=== PATIENT | male | born 1995 | race African-American/Black ===

== ENCOUNTER → 2017-09-26 | Outpatient (CLI) | payer OTHER ==
--- NOTE | 2017-09-26 07:27 | DIAGNOSTIC IMAGING REPORT ---
R LOWER EXT JOINT WITHOUT CLINICAL HISTORY: 22 years-old Male presenting with R KNEE PAIN, history of surgery in 2013, pain anterior and medial. TECHNIQUE: Multisequence, multiplanar MR imaging of the right knee was performed without the use of intravenous contrast. IV contrast: None. COMPARISON: None. FINDINGS: Localizer images: Unremarkable. Postsurgical changes of anterior cruciate ligament repair. No bony edema or abnormal signal intensity of the femoral or tibial attachments of the ACL graft. Susceptibility artifact in Hoffa's fat pad sided degrades evaluation, expected minute metallic artifact. Additional fixation anchor in the fibular head likely from fibular collateral ligament and biceps femoris tendon repairs. No bony edema. Articular cartilage thinning in the mid weightbearing portion of both the medial and lateral femoral condyles, which is less than 50% thickness. No significant apposing articular cartilage changes in the tibial plateau. Deep fissuring noted in the median trochlear cartilage which is over 50% thickness. Minimal irregularity of the apposing median prominence of the patellar cartilage. Horizontal tear of the posterior horn body junction of the medial meniscus, which approaches the inferior articular surface. Medial meniscocapsular ligaments intact. Complex tear versus degenerative change suspected at the posterior horn body junction of the lateral meniscus (series 5 image 5). Possible disruption of the meniscofemoral ligament attachment of the lateral meniscus with slight lateral extrusion of the body of the lateral meniscus. Posterior cruciate ligament intact though degenerative cystic change evident at the tibial insertion. Medial collateral ligament intact. Lateral collateral ligament complex, including the reattached biceps femoris tendon, reattached fibular collateral ligament, popliteus tendon, and iliotibial band intact. Quadriceps and patellar tendons intact. Medial and lateral patellar retinacula intact. No joint effusion. No popliteal cyst. Normal muscle bulk and muscle signal intensity. IMPRESSION: 1. Expected postsurgical appearance of anterior cruciate ligament graft repair. 2. Expected postsurgical appearance of biceps femoris tendon and fibular collateral ligament reinsertion at the fibular head. 3. Articular cartilage injury of the mid weightbearing portion of the medial lateral femoral condyles as well as the median trochlear cartilage and median prominence of the patellar cartilage as detailed above. 4. Horizontal tear of the posterior horn body junction of the medial meniscus suspected. 5. Complex tear versus degenerative change of the posterior horn body junction of the lateral meniscus with possible disruption of the meniscofemoral ligamentous attachment. Electronically signed by: Kenny Duffy M.D. 09/26/2017 7:26 AM Dictated Date/Time: 09/26/2017 7:15 AM
== END | disposition home or self-care (01) ==
LOC: C.MRI 06:02
PROVIDERS: ATTEND Family Medicine
DX: M25.561 Pain in right knee (principal); M23.91 Unspecified internal derangement of right knee